=== PATIENT | female | born 1955 | race Caucasian/White ===

== ENCOUNTER → 2021-04-22 09:52 | Outpatient (BNVA) | payer MEDICARE, SELFPAY | PROVIDERS: PCP Registered Nurse; Visit Provider Specialist | DX: G24.4 Idiopathic orofacial dystonia (principal) | CPT/HCPCS: 64612; 64616; 99204; J0585 ==

== ENCOUNTER → 2021-07-15 09:25 | Outpatient (BNVA) | payer MEDICARE, SELFPAY | PROVIDERS: PCP Registered Nurse; Visit Provider Specialist | DX: G24.4 Idiopathic orofacial dystonia (principal) | CPT/HCPCS: 64612; 64616; J0585 ==

== ENCOUNTER → 2021-07-21 13:48 | Outpatient (BNVA) | payer MEDICARE, SELFPAY | PROVIDERS: PCP Registered Nurse; Visit Provider Specialist | DX: R13.10 Dysphagia, unspecified (principal); G24.4 Idiopathic orofacial dystonia | CPT/HCPCS: 99213 ==

== ENCOUNTER → 2021-10-07 10:48 | Outpatient (BNVA) | payer MEDICARE, SELFPAY | PROVIDERS: PCP Family Medicine; Visit Provider Specialist | DX: G24.4 Idiopathic orofacial dystonia (principal) | CPT/HCPCS: 64612; 64616; J0585 ==

== ENCOUNTER → 2021-12-30 09:51 | Outpatient (BNVA) | payer MEDICARE, SELFPAY | PROVIDERS: PCP Family Medicine; Visit Provider Specialist | DX: G24.4 Idiopathic orofacial dystonia (principal) | CPT/HCPCS: 64612; 64642; J0585 ==

== ENCOUNTER → 2022-03-24 09:45 | Outpatient (BNVA) | payer MEDICARE, SELFPAY | PROVIDERS: PCP Family Medicine; Visit Provider Specialist | DX: G24.4 Idiopathic orofacial dystonia (principal) | CPT/HCPCS: 64612; 64616; J0585 ==

== ENCOUNTER → 2022-06-16 09:29 | Outpatient (BNVA) | payer MEDICARE, SELFPAY | PROVIDERS: PCP Family Medicine; Visit Provider Specialist | DX: G24.4 Idiopathic orofacial dystonia (principal) | CPT/HCPCS: 64612; 64616; J0585 ==

== ENCOUNTER → 2022-08-01 15:22 | Outpatient (BNVA) | payer MEDICARE, SELFPAY | PROVIDERS: PCP Family Medicine; Visit Provider Specialist | DX: G24.4 Idiopathic orofacial dystonia (principal); R13.10 Dysphagia, unspecified | CPT/HCPCS: 99214 ==

== ENCOUNTER → 2022-09-22 09:26 | Outpatient (BNVA) | payer MEDICARE, SELFPAY | PROVIDERS: PCP Family Medicine; Visit Provider Specialist | DX: G24.4 Idiopathic orofacial dystonia (principal) | CPT/HCPCS: 64612; 64642; J0585 ==

== ENCOUNTER → 2023-01-11 07:53 | Outpatient (BNVA) | payer MEDICARE, SELFPAY | PROVIDERS: PCP Family Medicine; Visit Provider Specialist | DX: G24.4 Idiopathic orofacial dystonia (principal) | CPT/HCPCS: 64612; J0585 ==

== ENCOUNTER → 2023-08-24 15:20 | Outpatient (BNVA) | payer MEDICARE, SELFPAY | PROVIDERS: PCP Family Medicine; Visit Provider Specialist | DX: G24.4 Idiopathic orofacial dystonia (principal) | CPT/HCPCS: 64612; J0585 ==

== ENCOUNTER → 2023-11-23 14:45 | Outpatient (BNVA) | payer MEDICARE, SELFPAY | PROVIDERS: PCP Family Medicine; Visit Provider Specialist | DX: G24.4 Idiopathic orofacial dystonia (principal); R03.0 Elevated blood-pressure reading, without diagnosis of hypertension | CPT/HCPCS: 64642; 64644; J0585 ==

== ENCOUNTER → 2024-03-01 14:54 | Outpatient (BNVA) | payer MEDICARE, SELFPAY | PROVIDERS: PCP Family Medicine; Visit Provider Specialist | DX: G24.4 Idiopathic orofacial dystonia (principal); R03.0 Elevated blood-pressure reading, without diagnosis of hypertension | CPT/HCPCS: 64642; J0585 ==

== ENCOUNTER → 2024-05-31 15:00 | Outpatient (BNVA) | payer MEDICARE, SELFPAY | PROVIDERS: PCP Family Medicine; Visit Provider Specialist | DX: G24.4 Idiopathic orofacial dystonia (principal) | CPT/HCPCS: 64612; J0585; J9999 ==

== ENCOUNTER → 2024-09-06 13:54 | Outpatient (BNVA) | payer MEDICARE, SELFPAY | PROVIDERS: PCP Family Medicine; Visit Provider Specialist | DX: G24.4 Idiopathic orofacial dystonia (principal) | CPT/HCPCS: 64612; J0585; J9999 ==

== ENCOUNTER → 2024-12-26 09:56 | Outpatient (BNVA) | payer MEDICARE, SELFPAY | PROVIDERS: PCP Family Medicine; Visit Provider Specialist | DX: G24.4 Idiopathic orofacial dystonia (principal) | CPT/HCPCS: 64612; J0585; J9999 ==